=== PATIENT | male | born 1950 | race Caucasian/White ===

== ENCOUNTER 2017-02-03 17:43 | Emergency (ER) | payer MEDICARE, MEDICAID ==
[~2017-02-03] VITALS: Ht 180.3 cm; Wt 103.0 kg
[2017-02-03] MEDS ORDERED: HYDROcodone/APAP 5 MG/325 MG (LORTAB) TAB PO ONE (18:00)
[2017-02-03] MEDS ORDERED: ORPHENADRINE 60 MG/2 ML (NORFLEX) AMP IM ONE (18:00)
[2017-02-03] MEDS ORDERED: ALLO300T2 PO (18:02)
--- NOTE | 2017-02-03 18:02 | ED Upper Extremity ---
General Chief Complaint: Trauma-Non Activation Stated Complaint: R WRIST PAIN/BACK PAIN FALL Nursing Triage Note: to ER with complaints of fall this morning, landing on his left side, hitting his right wrist on the ground. Patient complaining of right wrist and left lower back pain. Patient denies loss of consciousness, head, neck or back pain. Source: patient Exam Limitations: no limitations History of Present Illness Time seen by provider: 18:00 Initial Comments Ambulatory to ER complaint by his with reports of a fall occurred this morning. Patient tripped over a curb while walking. His caused him to twist and landed on the right side of his body. He complains of pain to the left low back from the twisting mechanism and states he did not directly hit this area on anything. He also has pain and swelling over the lateral aspect of the right hand. Did not hit his head. Denies neck pain. Location Injury Occurred: Xoft Onset: this evening Severity: moderate Pain/Injury Location: right hand Method of Injury: unknown Modifying Factors: Worse With Movement Allergies and Home Medications Allergies Coded Allergies: No Known Drug Allergies (Unverified , 02/03/17) Home Medications Allopurinol 300 Mg Tablet, 300 MG PO DAILY, #30 (Reported) Hydrocodone/Acetaminophen 1 Each Tablet, 1 EACH PO Q4H PRN for PAIN, #20 Prescribed by: JC DUFFY on 02/03/171916 Constitutional: see HPI EENTM: see HPI Respiratory: no symptoms reported Cardiovascular: no symptoms reported Genitourinary: no symptoms reported Musculoskeletal: see HPI Skin: no symptoms reported Psychiatric/Neurological: No Symptoms Reported Past Qhxpiyn-Hdbica-Ofkxvk Hx Patient Social History Alcohol Use: Occasionally Uses Recreational Drug Use: No Smoking Status: Never a Smoker 2nd Hand Smoke Exposure: No Recent Foreign Travel: No Contact w/Someone Who Travel: No Recent Hopitalizations: No Immunizations Up To Date Tetanus Booster (TDap): More than 5yrs PED Vaccines UTD: Yes Seasonal Allergies Seasonal Allergies: Yes Surgeries HX Surgeries: Yes Surgeries: Appendectomy Respiratory Hx Respiratory Disorders: No Cardiovascular Hx Cardiac Disorders: No Neurological Hx Neurological Disorders: No Reproductive System Hx Reproductive Disorders: No Genitourinary Hx Genitourinary Disorders: No Gastrointestinal Hx Gastrointestinal Disorders: No Musculoskeletal Hx Musculoskeletal Disorders: Yes Musculoskeletal Disorders: Gout Endocrine Hx Endocrine Disorders: No HEENT HX ENT Disorders: No Cancer Hx Cancer: No Psychosocial Hx Psychiatric Problems: No Integumentary HX Skin/Integumentary Disorder: No Blood Transfusions Hx Blood Disorders: No Physical Exam Vital Signs Vital Sign - Last 12Hours 02/03/17 17:53 Temp 98.5 Pulse 63 Resp 16 B/P (MAP) 174/98 Pulse Ox 95 O2 Delivery Room Air Capillary Refill : General Appearance: WD/WN, no apparent distress HEENT: PERRL/EOMI, normal ENT inspection Neck: non-tender, full range of motion Respiratory: no respiratory distress, no accessory muscle use Gastrointestinal: non tender, soft Shoulder: normal inspection, non-tender Elbow/Forearm: normal inspection, non-tender, Right Wrist: Yes normal inspection, Yes non-tender Hand: Right, limited ROM, soft tissue tenderness, swelling Neurologic/Tendon: normal sensation, normal motor functions Neurologic/Psychiatric: alert, normal mood/affect, oriented x 3 Skin: normal color, warm/dry Comments In regards to the left low back pain, there is no abrasion, erythema or ecchymosis to suggest direct injury. Pain does not radiate. Progress/Results/Core Measures Results/Orders My Orders Orders - JC DUFFY APRN Orphenadrine Injection (Norflex Injectio (02/03/17 18:00) Hydrocodone/Apap 5/325 Tablet (Lortab 5 (02/03/17 18:00) Lumbar Spine - 2-3 Views (02/03/17 17:59) Hand, Right, 3 Views (02/03/17 17:59) Medications Given in ED Current Medications Medications Dose Ordered Sig/Lashanda Route Start Time Stop Time Status Last Admin Dose Admin Acetaminophen/ Hydrocodone Bitart 1 tab ONCE ONCE PO 02/03/17 18:00 02/03/17 18:01 DC 02/03/17 18:07 1 TAB Orphenadrine Citrate 60 mg ONCE ONCE IM 02/03/17 18:00 02/03/17 18:01 DC 02/03/17 18:06 60 MG Vital Signs/I&O Vital Sign - Last 12Hours 02/03/17 02/03/17 02/03/17 17:53 18:06 18:07 Temp 98.5 98.5 98.5 Pulse 63 Resp 16 B/P (MAP) 174/98 Pulse Ox 95 O2 Delivery Room Air Departure Communication Progress Notes Patient was placed in an ulnar gutter style splint and will follow-up with orthopedics. Impression Impression: Primary Impression: Fall Additional Impression: Metacarpal bone fracture Disposition: 01 HOME, SELF-CARE Condition: Stable Departure-Patient Inst. Decision time for Depature: 19:16 Referrals: YUE EATON MD,ESTEFANÍA Trinh DO (PCP/Family) Primary Care Physician ALTA BECK MD,FELISA DE LA GARZA,HAYLEE WEINER,JACOB WALLACE,MONI Byers MD Patient Instructions: Hand Fracture Add. Discharge Instructions: 1. Wear the splint at all times until you follow-up with a hand surgeon in 1-2 weeks 2. A list of surgeons has been provided for you 3. Pain medication as directed All discharge instructions reviewed with patient and/or family. Voiced understanding. Scripts Hydrocodone/Acetaminophen (Beverly 5-325 Tablet) 1 Each Tablet 1 EACH PO Q4H Y for PAIN, #20 TAB Prov: JC DUFFY APRN 02/03/17 Images Torso/Trunk 1 - Tenderness JC DUFFY APRN Feb 03, 2017 18:02
--- NOTE | 2017-02-03 18:29 | Diagnostic Imaging Report ---
INDICATION: Fall, pain. COMPARISON: None available. TECHNIQUE: Three radiographs of the lumbar spine dated February 03, 2017. FINDINGS: Five lumbar type vertebral bodies are present. Minimal apex left curvature of the lumbar spine. 7 mm retrolisthesis of L3 on L4. Eight mm retrolisthesis of L2 on L3. Besides endplate degenerative changes, vertebral body heights are well-maintained. Minimal disc space height loss at L5/S1. Moderate disc space height loss at L2/L3 and L3/L4. Multilevel anterior osteophytes, greatest at L2/L3 and L3/L4. Multilevel lateral osteophytes are also present. The sacroiliac joints are intact. No acute fracture. Scattered facet joint degenerative changes, greatest within the lower lumbar spine. Mild vascular calcifications. IMPRESSION: Mild retrolisthesis of L2 on L3 and L3 on L4, of uncertain chronicity. However, degenerative disc disease and osteophyte formation is greatest at these levels suggesting a chronic process. Additional scattered degenerative changes with minimal apex left curvature of the lumbar spine. No discrete fracture identified. Dictated by: Dictated on workstation # [id number]
--- NOTE | 2017-02-03 19:15 | Diagnostic Imaging Report ---
INDICATION: Fall, pain. COMPARISON: None available. TECHNIQUE: Three radiographs of the right hand dated February 03, 2017. FINDINGS: A metallic density is identified within the soft tissues dorsal to the fourth digit middle phalanx. A nondisplaced transversely oriented fracture involving the base of the fifth metacarpal is identified. The fracture plane does not definitely extend to the articular surface. Tiny well-corticated ossific density is identified associated with the tip of the ulnar styloid. No additional fracture. No dislocation. Carpal alignment is well-maintained. Moderate vascular calcifications. Mild scattered degenerative changes with joint space narrowing and minimal osteophyte formation, particularly involving the distal interphalangeal joints. IMPRESSION: Nondisplaced fracture of the base of the fifth metacarpal without definite intra-articular extension. This appears acute. Small metallic density within the soft tissues dorsal to the fourth digit middle phalanx. Recommend clinical correlation and direct visualization. Moderate vascular calcifications. Mild scattered degenerative changes. Report given to Gerson Miller APRN, at 7:15 p.m. 02/03/2017/efra Dictated by: Dictated on workstation # [id number]
[2017-02-03] MEDS ORDERED: HYDR-757 PO (19:17)
[2017-02-03 19:39] VITALS: BP 0/0
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
== END 2017-02-03 19:39 | disposition home or self-care (01) ==
LOC: EDUNIT# 17:43 → ER 17:44
DX: S62.346A Nondisplaced fracture of base of fifth metacarpal bone, right hand, initial encounter for closed fracture (principal); W01.0XXA Fall on same level from slipping, tripping and stumbling without subsequent striking against object, initial encounter; Y92.414 Local residential or business street as the place of occurrence of the external cause; Y99.8 Other external cause status
CPT/HCPCS: 72100; 73130; 96372; 99282